=== PATIENT | female | born 1990 | race Caucasian/White ===

== ENCOUNTER 2020-03-28 10:55 | Emergency (ER) | payer BC, SELFPAY ==
[2020-03-28 11:23] VITALS: BP 133/92; PULSE 99; RESP 18; TEMP 37.3; O2SAT 97; BMI 29.4
--- NOTE | 2020-03-28 11:25 | US_ITS ---
EXAMINATION: US PELVIS COMPLETE US PELVIC OVARIAN DOPPLER US TRANSVAGINAL CLINICAL INFORMATION: Left-sided pain. Evaluate for torsion. Uterus removed. COMPARISON: None TECHNIQUE: Routine transabdominal and transvaginal imaging of the pelvis was performed. Vascular Doppler study of left ovary was performed. FINDINGS: The uterus has been surgically removed. The right ovary is not seen. The left ovary measures 2.2 x 1.7 x 1.7 cm and volume 3.3 mL. There is an anechoic cyst measuring 1.5 x 1.3 x 1.2 cm. There is normal arterial and venous Doppler flow seen. There is no free fluid in the cul-de-sac. US/US pelvic complete IMPRESSION: Uterus surgically removed. Right ovary not seen. Small cyst left ovary. Normal vascular arterial and venous flow seen to the left ovary.
--- NOTE | 2020-03-28 11:25 | US_ITS ---
EXAMINATION: US PELVIS COMPLETE US PELVIC OVARIAN DOPPLER US TRANSVAGINAL CLINICAL INFORMATION: Left-sided pain. Evaluate for torsion. Uterus removed. COMPARISON: None TECHNIQUE: Routine transabdominal and transvaginal imaging of the pelvis was performed. Vascular Doppler study of left ovary was performed. FINDINGS: The uterus has been surgically removed. The right ovary is not seen. The left ovary measures 2.2 x 1.7 x 1.7 cm and volume 3.3 mL. There is an anechoic cyst measuring 1.5 x 1.3 x 1.2 cm. There is normal arterial and venous Doppler flow seen. There is no free fluid in the cul-de-sac. US/US pelvic ovarian doppler IMPRESSION: Uterus surgically removed. Right ovary not seen. Small cyst left ovary. Normal vascular arterial and venous flow seen to the left ovary.
--- NOTE | 2020-03-28 11:25 | US_ITS ---
EXAMINATION: US PELVIS COMPLETE US PELVIC OVARIAN DOPPLER US TRANSVAGINAL CLINICAL INFORMATION: Left-sided pain. Evaluate for torsion. Uterus removed. COMPARISON: None TECHNIQUE: Routine transabdominal and transvaginal imaging of the pelvis was performed. Vascular Doppler study of left ovary was performed. FINDINGS: The uterus has been surgically removed. The right ovary is not seen. The left ovary measures 2.2 x 1.7 x 1.7 cm and volume 3.3 mL. There is an anechoic cyst measuring 1.5 x 1.3 x 1.2 cm. There is normal arterial and venous Doppler flow seen. There is no free fluid in the cul-de-sac. US/US transvaginal IMPRESSION: Uterus surgically removed. Right ovary not seen. Small cyst left ovary. Normal vascular arterial and venous flow seen to the left ovary.
--- NOTE | 2020-03-28 11:28 | ED_ITS ---
HPI - Female Genitourinary General Chief complaint: Abdominal Pain Stated complaint: PELVIC PAIN Time Seen by Provider: 03/28/20 11:25 Source: patient Mode of arrival: ambulatory Limitations: no limitations History of Present Illness MD elicited complaint: pelvic pain Pertinent past history: hysterectomy (partial for PPH - still has bilateral ovaries, hx of cyst on R ovary) Onset (ago): day(s) (last night started during intercourse (has never happened) worsened today while at work) Location of symptoms: LLQ Severity: severe Female Urogenital Radiation: Non-Radiating Quality of pain: stabbing Consistency: constant Vaginal discharge: none Vaginal bleeding: none Exacerbating factors: movement Relieving factors: none Associated symptoms: weakness, nausea and vomiting Treatment prior to arrival: none Sexual activity: Yes Patient : No Related Data Previous Rx's Medication Instructions Recorded dicyclomine 10 mg PO TID PRN #20 cap 03/28/20 ondansetron 4 mg PO Q8H PRN #20 tab 03/28/20 Allergies Allergy/AdvReac Type Severity Reaction Status Date / Time aspirin Allergy Rash Verified 03/28/20 11:25 levofloxacin Allergy Rash Verified 03/28/20 11:25 Review of Systems Review of Systems: Constitutional : No Weight loss, No Fever, No Chills ENT/Mouth : No sore throat, No Rhinorrhea Eyes: No Swelling, No Redness Cardiovascular : No Chest Pain, No SOB, NoEdema Respiratory : No Cough, No Sputum, No Wheezing Gastrointestinal : Positive Nausea, Positive Vomiting, no Diarrhea, positive abdominal Pain, No Hematochezia, No Melena Genitourinary : No Dysuria, No Urinary Frequency, No Hematuria, No Urgency, no discharge Musculoskeletal : No joint pain, No Myalgias, No Joint Swelling Skin : No Skin Lesions, No rash Neuro : No Weakness, No Numbness, pos Dizziness, No Headache All other systems reviewed and are negative. [facility] Past Medical History Attestation statement: The following information was validated with the patient. Medical History (Updated 03/28/20 @ 15:04 by Triny Garcia DO) Asthma FH: cholecystectomy Surgical History History of partial hysterectomy Social History Social History (Updated 03/28/20 @ 11:28 by Triny Garcia DO) Alcohol intake: never Smoking Status: Never smoker Smoked in Last 30 Days: No Use of substances other than those prescribed or required for medical reasons: No Advance Directives: No Advance Directives Information Provided: Yes Physical Exam Vital Signs: Vital Signs: Last Vital Signs Temp 99.2 F 03/28/20 11:23 Pulse 88 03/28/20 14:37 Resp 16 03/28/20 14:37 BP 144/90 H 03/28/20 14:37 Pulse Ox 97 03/28/20 11:23 Body Mass Index 29.4 Appearance: Alert. Oriented X3. in pain mild acute distress. Eyes: Pupils equal, round and reactive to light. ENT: Pharynx normal. Neck: Normal inspection. Neck supple. CVS: Normal heart rate and rhythm. Pulses normal. Respiratory: No respiratory distress. Breath sounds normal. Abdomen: Soft and moderate left pelvic pain no rebound or guarding Skin: Skin warm and dry. Normal skin color. Normal skin turgor. Extremities: No lower extremity edema. No calf ttp Neuro: Oriented X 3. No motor deficit. No sensory deficit. Course Course Course Narrative: review of US no significant findings to be cause of pain, CT scan ordered, IV ativan ordered, no cause of pain at this time repeat doses of pain medicaitons with normal labs, VS, CT scan and US at this time no cause for her pain review of PSYCHOLOGIST COUNSELING 83 prescriptions 27 providers in the last 30 days 4 narcotics by 4 different providers MDM - Female Genitourinary MDM Narrative Medical decision making narrative: 30 yo female partial hysterectomy comes in with L pelvic pain (still has ovary) started during intercourse and has worsened through the day at this time concern for torsion vs cyst rupture, labs, IV morphine for pain, US to evaluate L ovary Lab Data Result diagrams: 03/28/20 11:34 03/28/20 11:34 Labs: Lab Results 03/28/20 03/28/20 03/28/20 Range/Units 11:34 11:34 11:34 WBC 10.5 (4.8-10.8) X10*3/uL RBC 4.78 (4.20-5.50) X10*6/uL Hgb 13.9 (12.0-16.0) g/dl Hct 41.4 (37-47) % MCV 86.6 (80-98) fL MCH 29.1 (27.0-33.0) pg MCHC 33.6 (31.0-35.0) g/dl RDW 12.3 (11.0-16.0) % Plt Count 306 (160-400) X10*3/uL MPV 8.5 L (9.4-12.3) fL Immature Gran % (Auto) 0.4 (0.0-0.4) % Neut % (Auto) 61.8 (45-73) % Lymph % (Auto) 24.2 (20-40) % [place] % (Auto) 8.1 (2-11) % Eos % (Auto) 4.8 H (0-4) % Baso % (Auto) 0.7 (0-2) % Lymph # (Auto) 2.5 (1.2-4.9) X10*3/uL [place] # (Auto) 0.9 (0.1-1.2) X10*3/uL Eos # (Auto) 0.5 H (0.0-0.4) X10*3/uL Baso # (Auto) 0.1 (0.0-0.2) X10*3/uL Abs Immat Gran (auto) 0.04 H (0.00-0.03) X10*3/uL Absolute Neuts (auto) 6.5 (2.0-8.3) X10*3/uL Absolute Nucleated RBC 0.000 (0.0-0.012) X10*3/uL Nucleated RBC % (auto) 0.0 (0.0-0.2) /100WBC PT 11.7 (10.8-13.0) SEC INR 1.0 (0.9-1.1) APTT 35.6 (24.1-38.0) SEC Sodium 139 (135-145) mmol/L Potassium 3.8 (3.3-5.1) mmol/l Chloride 104 (96-108) mmol/L Carbon Dioxide 26 (22-29) mmol/L Anion Gap 13 (12-20) BUN 11 (9-16) mg/dL Creatinine 0.74 (0.5-1.4) mg/dL Estim Creat Clear Calc 134.9 Estimated GFR > 60 Random Glucose 86 (60-115) mg/dL Lactic Acid (0.5-2.0) mmol/L Calcium 8.9 (8.4-10.2) mg/dL Magnesium 2.0 (1.6-2.6) mg/dL Total Bilirubin 0.2 (0.0-1.0) mg/dL Direct Bilirubin < 0.2 (0.0-0.5) mg/dL AST 20 (5-31) U/L ALT 25 (0-31) U/L Alkaline Phosphatase 90 (39-117) U/L Total Protein 6.9 (6.5-8.0) g/dL Albumin 4.4 (3.5-5.0) g/dL Lipase 29 (8-78) U/L Beta HCG, Quant < 2 mIU/mL Urine Color Urine Appearance Urine pH (5.0-8.0) Ur Specific [place] (1.005-1.025) Urine Protein (NEG-TRACE) MG/DL Urine Glucose (UA) (NEG) MG/DL Urine Ketones (NEG) MG/DL Urine Blood (NEG) Urine Nitrite (NEG) Ur Leukocyte Esterase (NEG) 03/28/20 03/28/20 Range/Units 11:34 11:56 WBC (4.8-10.8) X10*3/uL RBC (4.20-5.50) X10*6/uL Hgb (12.0-16.0) g/dl Hct (37-47) % MCV (80-98) fL MCH (27.0-33.0) pg MCHC (31.0-35.0) g/dl RDW (11.0-16.0) % Plt Count (160-400) X10*3/uL MPV (9.4-12.3) fL Immature Gran % (Auto) (0.0-0.4) % Neut % (Auto) (45-73) % Lymph % (Auto) (20-40) % [place] % (Auto) (2-11) % Eos % (Auto) (0-4) % Baso % (Auto) (0-2) % Lymph # (Auto) (1.2-4.9) X10*3/uL [place] # (Auto) (0.1-1.2) X10*3/uL Eos # (Auto) (0.0-0.4) X10*3/uL Baso # (Auto) (0.0-0.2) X10*3/uL Abs Immat Gran (auto) (0.00-0.03) X10*3/uL Absolute Neuts (auto) (2.0-8.3) X10*3/uL Absolute Nucleated RBC (0.0-0.012) X10*3/uL Nucleated RBC % (auto) (0.0-0.2) /100WBC PT (10.8-13.0) SEC INR (0.9-1.1) APTT (24.1-38.0) SEC Sodium (135-145) mmol/L Potassium (3.3-5.1) mmol/l Chloride (96-108) mmol/L Carbon Dioxide (22-29) mmol/L Anion Gap (12-20) BUN (9-16) mg/dL Creatinine (0.5-1.4) mg/dL Estim Creat Clear Calc Estimated GFR Random Glucose (60-115) mg/dL Lactic Acid 1.8 (0.5-2.0) mmol/L Calcium (8.4-10.2) mg/dL Magnesium (1.6-2.6) mg/dL Total Bilirubin (0.0-1.0) mg/dL Direct Bilirubin (0.0-0.5) mg/dL AST (5-31) U/L ALT (0-31) U/L Alkaline Phosphatase (39-117) U/L Total Protein (6.5-8.0) g/dL Albumin (3.5-5.0) g/dL Lipase (8-78) U/L Beta HCG, Quant mIU/mL Urine Color YELLOW Urine Appearance CLEAR Urine pH 7.0 (5.0-8.0) Ur Specific [place] 1.010 (1.005-1.025) Urine Protein NEG (NEG-TRACE) MG/DL Urine Glucose (UA) NEG (NEG) MG/DL Urine Ketones NEG (NEG) MG/DL Urine Blood NEG (NEG) Urine Nitrite NEG (NEG) Ur Leukocyte Esterase NEG (NEG) Discharge Plan Discharge Clinical Impression: Pelvic pain Ovarian cyst Qualifiers: Laterality: left Qualified Code(s): N83.202 - Unspecified ovarian cyst, left side Patient Disposition: Home, Self-Care Instructions: Ovarian Cyst (ED) Additional Instructions: return to ED for any worsening symptoms or concerns Prescriptions: New ondansetron 4 mg tablet,disintegrating 4 mg PO Q8H PRN (Reason: nausea and vomiting) Qty: 20 RF: 0 dicyclomine 10 mg capsule 10 mg PO TID PRN (Reason: abdominal pain) Qty: 20 RF: 0 Referrals: Physician,Nonstaff [Primary Care Provider] - 2 days (your [employer] TECHNICIAN tuesday) Stand Alone Forms: Work/School Release
[2020-03-28] MEDS: 0.9 % Sodium Chloride 1,000 ML 999 ML IVCONT (11:30)
[2020-03-28 11:31] VITALS: RESP 16
[2020-03-28] MEDS: Morphine Sulfate 4 MG/ML CARTRIDGE IVPUSH (11:31)
[2020-03-28] MEDS: ondansetron HCL 4 MG/2 ML VIAL IVPUSH (11:31)
[2020-03-28 11:43] LABS: MANUAL DIFF FLAG NO
[2020-03-28 11:47] LABS: Basophils Absolute Auto 0.1 X10*3/uL (0.0-0.2); Basophils Percent Auto 0.7 % (0-2); Eosinophils Absolute Auto 0.5 X10*3/uL (0.0-0.4); Eosinophils Percent Auto 4.8 % (0-4); Hematocrit 41.4 % (37-47); Hemoglobin 13.9 g/dl (12.0-16.0); Imm Gran Abs Auto 0.04 X10*3/uL (0.00-0.03); Imm Gran Pct Auto 0.4 % (0.0-0.4); Lymphocytes Absolute Auto 2.5 X10*3/uL (1.2-4.9); Lymphocytes Percent Auto 24.2 % (20-40); Mean Corpuscular HGB Conc 33.6 g/dl (31.0-35.0); Mean Corpuscular Hemoglobin 29.1 pg (27.0-33.0); Mean Corpuscular Volume 86.6 fL (80-98); Mean Platelet Volume 8.5 fL (9.4-12.3); Monocytes Absolute Auto 0.9 X10*3/uL (0.1-1.2); Monocytes Percent Auto 8.1 % (2-11); Neutrophils Absolute Auto 6.5 X10*3/uL (2.0-8.3); Neutrophils Percent Auto 61.8 % (45-73); Platelet Count 306 X10*3/uL (160-400); Red Blood Count 4.78 X10*6/uL (4.20-5.50); Red Cell Distribution Width 12.3 % (11.0-16.0); White Blood Count 10.5 X10*3/uL (4.8-10.8)
[2020-03-28 11:53] LABS: Prothrombin Time 11.7 SEC (10.8-13.0)
[2020-03-28 11:54] VITALS: RESP 16
[2020-03-28] MEDS: HYDROmorphone HCl 1 MG/ML SYRINGE IVPUSH (11:54)
[2020-03-28 11:56] LABS: Partial Thromboplastin Time 35.6 SEC (24.1-38.0)
[2020-03-28 12:06] LABS: Glucose Urine UA NEG (NEG); Leukocyte Esterase Urine NEG (NEG); Nitrite Urine NEG (NEG); Urine Blood NEG (NEG); Urine Ketones NEG (NEG); Urine Protein NEG (NEG-TRACE)
[2020-03-28 12:07] LABS: Appearance Urine CLEAR; Color Urine YELLOW; UACC Culture Trigger NO
[2020-03-28 12:14] LABS: Lactic Acid 1.8 mmol/L (0.5-2.0)
[2020-03-28 12:22] LABS: Alanine Aminotransferase 25 U/L (0-31); Albumin Level 4.4 g/dL (3.5-5.0); Alkaline Phosphatase 90 U/L (39-117); Anion Gap 13 (12-20); Aspartate Amino Transferase 20 U/L (5-31); Bilirubin Direct < 0.2 mg/dL (0.0-0.5); Bilirubin Total 0.2 mg/dL (0.0-1.0); Blood Urea Nitrogen 11 mg/dL (9-16); Calcium 8.9 mg/dL (8.4-10.2); Carbon Dioxide 26 mmol/L (22-29); Chloride 104 mmol/L (96-108); Creatinine Clr Calc Pharmacy 134.9; Estimated Glomerular Filt Rate > 60; Glucose Random 86 mg/dL (60-115); Lipase 29 U/L (8-78); Potassium 3.8 mmol/l (3.3-5.1); Sodium 139 mmol/L (135-145); Total Protein 6.9 g/dL (6.5-8.0)
[2020-03-28 12:30] LABS: HCG Quantitative < 2 mIU/mL
--- NOTE | 2020-03-28 12:40 | CT_ITS ---
EXAMINATION: CT ABDOMEN AND PELVIS WITH CONTRAST CLINICAL INFORMATION: Left lower quadrant pain COMPARISON: Previous pelvic ultrasound earlier the same day TECHNIQUE: Multidetector volumetric images were obtained from the superior aspect of the liver through the pubic symphysis following administration 85 mL ofOmnipaque 350 intravenous contrast. Sagittal and coronal reformatted images were obtained on the technologist's workstation. Oral contrast: Yes This CT examination was performed using dose optimization techniques as appropriate, variously including the following: *Automated exposure control *Adjustment of mA and/or kV according to patient size (this includes techniques or standardized protocols for targeted exams where dose is matched to indication/reason for exam; i.e. extremities or head) *Use of iterative reconstruction technique DLP: 909 mGy-cm FINDINGS: LUNG BASES: The visualized lung bases are unremarkable. LIVER, GALLBLADDER, AND BILIARY TREE: The liver is normal in size, shape, and attenuation. No focal hepatic lesion or biliary ductal dilatation is present. The gallbladder has been removed. PANCREAS: Unremarkable. SPLEEN: Unremarkable. ADRENAL GLANDS: Unremarkable. KIDNEYS AND URETERS: The kidneys are normal in size, shape, and attenuation. No hydronephrosis, hydroureter, or calculi seen. No perinephric stranding. BLADDER: Not optimally distended. GASTROINTESTINAL TRACT: The small and large bowel are unremarkable. The appendix is unremarkable. ABDOMINAL WALL: There is diastasis of the rectus muscles. LYMPH NODES: Normal. VASCULAR: Unremarkable. PELVIC VISCERA: The uterus appears to have been removed. No pelvic mass is seen. OSSEOUS STRUCTURES: Unremarkable. CT/CT abdomen pelvis w IV con IMPRESSION: Unremarkable exam.
[2020-03-28] MEDS: iohexoL 350 MG/ML 100 ML INFUS..BTL IV (13:05)
[2020-03-28] MEDS: LORazepam 2 MG/ML VIAL 1 MG IVPUSH ×2 (13:07→14:47)
[2020-03-28] MEDS: diphenhydrAMINE HCL 50 MG/ML VIAL 25 MG IVPUSH (14:08)
[2020-03-28] MEDS: Metoclopramide HCl 10 MG/2 ML VIAL IVPUSH (14:08)
[2020-03-28 14:37] VITALS: BP 144/90; PULSE 88; RESP 16
== END 2020-03-28 15:26 | disposition home or self-care (01) ==
PROVIDERS: Emergency Provider Emergency Medicine
DX: N83.202 Unspecified ovarian cyst, left side (principal); R10.2 Pelvic and perineal pain; R10.32 Left lower quadrant pain; Z79.899 Other long term (current) drug therapy
CPT/HCPCS: 36415; 74177; 76830; 76856; 80048; 80076; 81003; 83605; 83690; 83735; 84702; 85025; 85610; 85730; 93975; 96361; 96374; 96375; 96376; 99284; J1170; J1200; J2060; J2270; J2405; J2765; Q9967